=== PATIENT | male | born 1980 | race Caucasian/White ===

== ENCOUNTER 2019-05-15 10:02 | Emergency (ER) | payer OTHER ==
[2019-05-15 10:39] VITALS: BP 152/79
--- NOTE | 2019-05-15 11:36 | UC ---
Complaint Male HPI - HPI Summary HPI Summary: 39-year-old male presents with 2 separate complaints. The patient's first complaint is onset of painful ulcerations of his penis that started one week ago. States had unprotected sex with a new, unknown female partner approximately 4-5 days prior to onset of symptoms. Denies fever, chills, abdominal pain, nausea, vomiting, dysuria, frequency, urgency, hematuria, penile discharge, testicular pain or swelling. Patient's second complaint is for pain and swelling of his right upper eyelid for the past days. Denies visual disturbances, by redness, itchiness, eye pain, or purulent discharge. - History of Current Complaint Chief Complaint: UCGU Stated Complaint: PERSONAL Time Seen by Provider: 05/15/19 11:11 Hx Obtained From: Patient Pain Intensity: 3 - Allergies/Home Medications Allergies/Adverse Reactions: Allergies Allergy/AdvReac Type Severity Reaction Status Date / Time ibuprofen Allergy Swelling Verified 05/15/19 10:40 PMH/Surg Hx/FS Hx/Imm Hx Previously Healthy: Yes - Denies significant PMH - Surgical History Surgical History: Yes Surgery Procedure, Year, and Place: R knee - Family History Known Family History: Positive: Non-Contributory - Social History Occupation: Employed Full-time Lives: Alone Alcohol Use: Occasionally Substance Use Type: Marijuana Smoking Status (MU): Heavy Every Day Tobacco Smoker Amount Used/How Often: 3/4 ppd Review of Systems All Other Systems Reviewed And Are Negative: Yes Constitutional: Negative: Fever, Chills Skin: Positive: Other - See HPI Eyes: Positive: Other - See HPI ENT: Positive: Negative Respiratory: Positive: Negative Cardiovascular: Positive: Negative Gastrointestinal: Positive: Negative Genitourinary: Positive: Ulceration/Lesion. Negative: Dysuria, Hematuria, Frequency, Urgency, Vaginal/Penile Discharge Musculoskeletal: Positive: Negative Neurological: Positive: Negative Is Patient Immunocompromised?: No Physical Exam - Summary Physical Exam Summary: GENERAL APPEARANCE: Well developed, well nourished, alert and cooperative, and appears to be in no acute distress. EYES: Conjunctiva clear. No drainage. Mild erythema and swelling of the right upper eyelid. EARS: External auditory canals and tympanic membranes clear, hearing grossly intact. NOSE: No nasal discharge. THROAT: Pharynx normal No tonsilar inflammation, swelling, exudate, or lesions. Uvula midline. NECK: Neck supple, non-tender without lymphadenopathy. CARDIAC: Normal S1 and S2. No S3, S4 or murmurs. Rhythm is regular. There is no peripheral edema, cyanosis or pallor. Extremities are warm and well perfused. Capillary refill is less than 2 seconds. Peripheral pulses intact. LUNGS: Clear to auscultation without rales, rhonchi, wheezing or diminished breath sounds. ABDOMEN: Positive bowel sounds. Soft, nondistended, nontender. No guarding or rebound. No masses or hepatosplenomegally. GENITOURINARY: Multiple erythematous, painful ulcerations of the shaft of the penis, no penile discharge, testicles smooth and non-tender without nodules or masses. MUSKULOSKELETAL: ROM intact to all extremities. No joint erythema or tenderness. Normal muscular development. Normal gait. SKIN: Skin normal color, texture and turgor. Triage Information Reviewed: Yes Vital Signs: Initial Vital Signs Temp 99 F 05/15/19 10:34 Pulse 81 05/15/19 10:34 Resp 18 05/15/19 10:34 BP 152/79 05/15/19 10:34 Pulse Ox 99 05/15/19 10:34 Vital Signs Reviewed: Yes Complaint Male Course/Dx - Course Course Of Treatment: 39-year-old male presents with 2 separate complaints. The patient's first complaint is onset of painful ulcerations of his penis that started one week ago. States had unprotected sex with a new, unknown female partner approximately 4-5 days prior to onset of symptoms. Denies fever, chills, abdominal pain, nausea, vomiting, dysuria, frequency, urgency, hematuria, penile discharge, testicular pain or swelling. Patient's second complaint is for pain and swelling of his right upper eyelid for the past days. Denies visual disturbances, by redness, itchiness, eye pain, or purulent discharge. Afebrile. Vital signs stable. Patient had mild erythema and swelling of the right upper eyelid consistent with a hordeolum, ultiple erythematous, painful ulcerations of the shaft of the penis, and otherwise unremarkable exam. Ulcerations are consistent with genital herpes. A culture was obtained from one of the lesions of the penis and sent for testing. We also performed a screening for other ST ice at this time and will provide appropriate treatment pending those results. We'll start the patient on valacyclovir 1000 mg daily 5 days. Discussed at length with the patient that this is not a cure and that he may have future outbreaks. We also discussed the need for consistent condom use as he could potentially spread this to other partners even if asymptomatic. I have additionally recommended symptomatic treatment for a right upper eyelid hordeolum including warm moist compresses and gentle massage. Patient is to follow-up with his primary care provider if symptoms are not improving and for follow-up testing. Anticipatory guidance and warning symptoms were reviewed with the patient. Verbalizes understanding and agrees with plan of care. - Differential Dx/Diagnosis Provider Diagnosis: Genital herpes in men, Hordeolum of right upper eyelid Discharge ED - Sign-Out/Discharge Documenting (check all that apply): Patient Departure All imaging exams completed and their final reports reviewed: No Studies - Discharge Plan Condition: Stable Disposition: HOME Prescriptions: Valacyclovir HCl [Valacyclovir] 1,000 mg PO DAILY #5 tablet Patient Education Materials: Genital Herpes Simplex (ED), Safe Sex (ED), Stye ( ED) Referrals: Regan Weber MD [Primary Care Provider] - 3 Days Additional Instructions: Your symptoms are consistent with genital herpes which is caused by a viral infection. A culture was sent to try to verify the diagnosis. We will start you on an antiviral medication to suppress the symptoms. Be aware that this is not a cure and you may have a reoccurrence of the symptoms. We have also performed screening for further sexually transmitted infections. We will contact you if any of these are positive and start chewing on appropriate treatment at that time. You should avoid any sexual intercourse as long as you have lesions present as you could potentially spread this to others. There is always a risk of spreading the infection to others even if you are asymptomatic therefore is important that you are consistently using a condom whenever having intercourse. The swelling of the upper eyelid is consistent with a stye. These will typically resolve on their own over a few days. You can use warm moist compresses to the eye for 15 minutes 3-4 times a day as well as perform gentle massage of the eye to help improve symptoms were quickly. Follow-up with your primary care provider in 3-5 days if there is no improvement in symptoms. You should also follow-up with your primary in 2 weeks to discuss repeat testing. Seek immediate medical attention in the emergency room if you develop any fever greater than 100.5 F, have difficulty inability to urinate, severe abdominal pain, persistent of projectile vomiting, or any worsening of symptoms. - Billing Disposition and Condition Condition: STABLE Disposition: Home - Attestation Statements Provider Attestation: I was available for consult. This patient was seen by the [email or web address]. The patient was not presented to, seen by, or examined by me. -Omaira
[2019-05-15 17:43] LABS: HIV 4th Generation Nonreactive (Nonreactive)
--- NOTE | 2019-05-16 09:05 | UC ---
- Progress Note Progress Note: Patient seen for STD symptoms. Patient's HIV test return today with being nonreactive. No change in plan. Syphilis is still pending. Course/Dx - Diagnoses Provider Diagnoses: Genital herpes in men, Hordeolum of right upper eyelid Discharge ED - Sign-Out/Discharge Documenting (check all that apply): Post-Discharge Follow Up All imaging exams completed and their final reports reviewed: No Studies - Discharge Plan Condition: Stable Disposition: HOME Prescriptions: Valacyclovir HCl [Valacyclovir] 1,000 mg PO DAILY #5 tablet Patient Education Materials: Genital Herpes Simplex (ED), Safe Sex (ED), Stye ( ED) Referrals: Regna Weber MD [Primary Care Provider] - 3 Days Additional Instructions: Your symptoms are consistent with genital herpes which is caused by a viral infection. A culture was sent to try to verify the diagnosis. We will start you on an antiviral medication to suppress the symptoms. Be aware that this is not a cure and you may have a reoccurrence of the symptoms. We have also performed screening for further sexually transmitted infections. We will contact you if any of these are positive and start chewing on appropriate treatment at that time. You should avoid any sexual intercourse as long as you have lesions present as you could potentially spread this to others. There is always a risk of spreading the infection to others even if you are asymptomatic therefore is important that you are consistently using a condom whenever having intercourse. The swelling of the upper eyelid is consistent with a stye. These will typically resolve on their own over a few days. You can use warm moist compresses to the eye for 15 minutes 3-4 times a day as well as perform gentle massage of the eye to help improve symptoms were quickly. Follow-up with your primary care provider in 3-5 days if there is no improvement in symptoms. You should also follow-up with your primary in 2 weeks to discuss repeat testing. Seek immediate medical attention in the emergency room if you develop any fever greater than 100.5 F, have difficulty inability to urinate, severe abdominal pain, persistent of projectile vomiting, or any worsening of symptoms. - Billing Disposition and Condition Condition: STABLE Disposition: Home
[2019-05-16 12:34] LABS: Chlamydia trachomatis NAA Positive (Negative); Neisseria gonorrhoeae (GC) NAA Negative (Negative)
--- NOTE | 2019-05-16 16:07 | UC ---
- Progress Note Progress Note: Chlamydia and gonorrhea come back from May 15, 2019 urine sample. Chlamydia is positive. Gonorrhea is negative. Syphilis and HIV are negative. Patient was not treated for chlamydia empirically. A call the prescription for azithromycin 1 g to be taken as a single dose. Nursing to call patient inform him of the results and to let them know he needs to take the azithromycin and avoid sexual activity for 2 weeks. He also needs to inform any sexual partners. Course/Dx - Diagnoses Provider Diagnoses: Genital herpes in men, Hordeolum of right upper eyelid Discharge ED - Sign-Out/Discharge Documenting (check all that apply): Patient Departure All imaging exams completed and their final reports reviewed: No Studies - Discharge Plan Condition: Stable Disposition: HOME Prescriptions: Azithromycin 1,000 mg PO ONCE #2 tablet Valacyclovir HCl [Valacyclovir] 1,000 mg PO DAILY #5 tablet Patient Education Materials: Genital Herpes Simplex (ED), Safe Sex (ED), Stye ( ED) Referrals: Regan Weber MD [Primary Care Provider] - 3 Days Additional Instructions: Your symptoms are consistent with genital herpes which is caused by a viral infection. A culture was sent to try to verify the diagnosis. We will start you on an antiviral medication to suppress the symptoms. Be aware that this is not a cure and you may have a reoccurrence of the symptoms. We have also performed screening for further sexually transmitted infections. We will contact you if any of these are positive and start chewing on appropriate treatment at that time. You should avoid any sexual intercourse as long as you have lesions present as you could potentially spread this to others. There is always a risk of spreading the infection to others even if you are asymptomatic therefore is important that you are consistently using a condom whenever having intercourse. The swelling of the upper eyelid is consistent with a stye. These will typically resolve on their own over a few days. You can use warm moist compresses to the eye for 15 minutes 3-4 times a day as well as perform gentle massage of the eye to help improve symptoms were quickly. Follow-up with your primary care provider in 3-5 days if there is no improvement in symptoms. You should also follow-up with your primary in 2 weeks to discuss repeat testing. Seek immediate medical attention in the emergency room if you develop any fever greater than 100.5 F, have difficulty inability to urinate, severe abdominal pain, persistent of projectile vomiting, or any worsening of symptoms. - Billing Disposition and Condition Condition: STABLE Disposition: Home
[2019-05-16 23:34] LABS: Herpes Source PENIS
--- NOTE | 2019-05-17 07:43 | UC ---
- Progress Note Progress Note: Notify patient he tested positive for Herpes virus type 1. Take Valcyclovir as was prescribed for herpes infection. Course/Dx - Diagnoses Provider Diagnoses: Genital herpes in men, Hordeolum of right upper eyelid Discharge ED - Sign-Out/Discharge Documenting (check all that apply): Post-Discharge Follow Up All imaging exams completed and their final reports reviewed: No Studies - Discharge Plan Condition: Stable Disposition: HOME Prescriptions: Azithromycin 1,000 mg PO ONCE #2 tablet Valacyclovir HCl [Valacyclovir] 1,000 mg PO DAILY #5 tablet Patient Education Materials: Genital Herpes Simplex (ED), Safe Sex (ED), Stye ( ED) Referrals: Regan Weber MD [Primary Care Provider] - 3 Days Additional Instructions: Your symptoms are consistent with genital herpes which is caused by a viral infection. A culture was sent to try to verify the diagnosis. We will start you on an antiviral medication to suppress the symptoms. Be aware that this is not a cure and you may have a reoccurrence of the symptoms. We have also performed screening for further sexually transmitted infections. We will contact you if any of these are positive and start chewing on appropriate treatment at that time. You should avoid any sexual intercourse as long as you have lesions present as you could potentially spread this to others. There is always a risk of spreading the infection to others even if you are asymptomatic therefore is important that you are consistently using a condom whenever having intercourse. The swelling of the upper eyelid is consistent with a stye. These will typically resolve on their own over a few days. You can use warm moist compresses to the eye for 15 minutes 3-4 times a day as well as perform gentle massage of the eye to help improve symptoms were quickly. Follow-up with your primary care provider in 3-5 days if there is no improvement in symptoms. You should also follow-up with your primary in 2 weeks to discuss repeat testing. Seek immediate medical attention in the emergency room if you develop any fever greater than 100.5 F, have difficulty inability to urinate, severe abdominal pain, persistent of projectile vomiting, or any worsening of symptoms. - Billing Disposition and Condition Condition: STABLE Disposition: Home
== END 2019-05-15 12:02 | disposition home or self-care (01) ==
LOC: UCCORT 10:02
DX: A60.01 Herpesviral infection of penis (principal); H00.011 Hordeolum externum right upper eyelid; A74.89 Other chlamydial diseases; F17.210 Nicotine dependence, cigarettes, uncomplicated; Z88.6 Allergy status to analgesic agent
CPT/HCPCS: 36415; 86780; 87389; 87491; 87529; 87591; 99212; G0463

== ENCOUNTER 2019-09-22 09:06 | Emergency (ER) | payer OTHER ==
[2019-09-22 10:14] VITALS: BP 148/94
--- NOTE | 2019-09-22 11:27 | UC ---
Skin Complaint HPI - HPI Summary HPI Summary: 39-year-old male comes in with chief complaint of a rash. It's in the suprapubic area and also on the upper proximal anterior thighs. It itches. Patient was seen here in April 2019 and diagnosed with a first outbreak of herpes virus. He was treated with valacyclovir at that time. 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 At that time he also had positive for chlamydia and was treated with azithromycin. Today patient denies any urinary symptoms and denies pain with any new sexual partners and is not worried about a sexually transmitted infection at this time. No fevers or chills. - History of Current Complaint Chief Complaint: UCGeneralIllness Time Seen by Provider: 09/22/19 10:47 Stated Complaint: PERSONAL Pain Intensity: 0 - Allergy/Home Medications Allergies/Adverse Reactions: Allergies Allergy/AdvReac Type Severity Reaction Status Date / Time ibuprofen Allergy Swelling Verified 09/22/19 10:10 Home Medications: Home Medications Amoxicillin 500 mg PO BID 09/22/19 [History Confirmed 09/22/19] PMH/Surg Hx/FS Hx/Imm Hx Previously Healthy: Yes - HSV1 - Surgical History Surgical History: Yes Surgery Procedure, Year, and Place: R knee - Family History Known Family History: Positive: Non-Contributory - Social History Alcohol Use: Occasionally Substance Use Type: Marijuana Smoking Status (MU): Heavy Every Day Tobacco Smoker Amount Used/How Often: 3/4 ppd Review of Systems All Other Systems Reviewed And Are Negative: Yes Constitutional: Positive: Negative Skin: Positive: Other - SEE HPI Eyes: Positive: Negative ENT: Positive: Negative Respiratory: Positive: Negative Cardiovascular: Positive: Negative Gastrointestinal: Positive: Negative Genitourinary: Positive: Other - SEE HPI Motor: Positive: Negative Neurovascular: Positive: Negative Musculoskeletal: Positive: Negative Neurological: Positive: Negative Psychological: Positive: Negative Is Patient Immunocompromised?: No Physical Exam Triage Information Reviewed: Yes Appearance: Well-Appearing, No Pain Distress, Well-Nourished Vital Signs: Initial Vital Signs Temp 98.6 F 09/22/19 10:11 Pulse 84 09/22/19 10:11 Resp 14 09/22/19 10:11 BP 148/94 09/22/19 10:11 Pulse Ox 97 09/22/19 10:11 Vital Signs Reviewed: Yes Eye Exam: Normal Eyes: Positive: Conjunctiva Clear Neck: Positive: Supple Respiratory: Positive: No respiratory distress Musculoskeletal: Positive: Strength Intact, ROM Intact Neurological: Positive: Alert Psychological: Positive: Age Appropriate Behavior Skin: Positive: Other - Patient has an erythematous rash slightly raised papules that are spread in the suprapubic region and then also on the upper proximal anterior thighs. There are excoriations. Course/Dx - Course Course Of Treatment: Based on the distribution of the rash it's unlikely that this is herpes. It appears more follicular. We'll treat with doxycycline for follicular rash. Patient can also take Benadryl for the itching. Because of the history of herpes we'll also treat with valacyclovir. Patient has an appointment with his Primary care physician tomorrow for further evaluation and care. - Diagnoses Provider Diagnosis: Rash, History of herpes simplex infection Discharge ED - Sign-Out/Discharge Documenting (check all that apply): Patient Departure All imaging exams completed and their final reports reviewed: No Studies - Discharge Plan Condition: Stable Disposition: HOME Prescriptions: DOXYcycline CAP(*) [DOXYcycline 100MG CAP(*)] 100 mg PO BID #20 cap Valacyclovir HCl [Valtrex] 1,000 mg PO BID #20 tablet Patient Education Materials: Genital Herpes Simplex (ED), Acute Rash (ED), Folliculitis (ED) Referrals: Regan Weber MD [Primary Care Provider] - Additional Instructions: FOLLOW UP WITH YOUR DOCTOR TOMORROW, 09/23/19, SCHEDULED. The appearance of your rash today may be folliculitis which is a bacterial infection and therefore we are treating with doxycycline. Due to year history of herpes rash we are also treating with the antiviral valacyclovir. GET REEVALUATED SOONER IF NOT IMPROVING OR WORSE OR ANY QUESTIONS OR CONCERNS. - Billing Disposition and Condition Condition: STABLE Disposition: Home
== END 2019-09-22 11:31 | disposition home or self-care (01) ==
LOC: UCCORT 09:06
DX: R21 Rash and other nonspecific skin eruption (principal); F17.210 Nicotine dependence, cigarettes, uncomplicated; Z86.19 Personal history of other infectious and parasitic diseases; Z88.6 Allergy status to analgesic agent
CPT/HCPCS: 99212; G0463